=== PATIENT | male | born 1990 | race Caucasian/White ===

== ENCOUNTER → 2018-08-16 11:58 | Outpatient (CLI) | payer OTHER, SELFPAY ==
--- NOTE | 2018-08-16 12:05 | XR_ITS ---
XR KUB HISTORY: Renal stones ITS.REASON: kidney stone ORDERING PHYSICIAN: Rayo Lazar MD PATIENT AGE: 28 years COMPARISON: 07/19/2018 FINDINGS: There are multiple bilateral renal calculi.. There is a small cluster of calcifications noted over the L3 transverse process on the left and could represent small stones in the proximal left ureter. No other abnormality is are apparent. IMPRESSION: 1. Bilateral renal calculi. 2. Possible proximal fragmented left ureteral stone
== END ==
PROVIDERS: Visit Provider Urology
DX: N20.0 Calculus of kidney (principal)
CPT/HCPCS: 74018

== ENCOUNTER → 2018-09-06 12:40 | Outpatient (CLI) | payer OTHER, SELFPAY ==
--- NOTE | 2018-09-06 12:50 | XR_ITS ---
XR KUB HISTORY: ITS.REASON: kidney stones ORDERING PHYSICIAN: Rayo Lazar MD PATIENT AGE: 28 years COMPARISON: 08/16/2018 FINDINGS: The bowel gas pattern is unremarkable. No obvious obstruction.. Bilateral renal calculi are present. Multiple stones are present on the right measuring up to 6 mm in the lower pole. At least one stone noted in the left mid to lower pole at 4 mm. No obvious ureteral calculi. IMPRESSION: Bilateral nephrolithiasis
== END ==
PROVIDERS: Visit Provider Urology
DX: N20.1 Calculus of ureter (principal)
CPT/HCPCS: 74018

== ENCOUNTER 2020-04-11 12:51 | Emergency (ER) | payer OTHER, SELFPAY ==
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
[2020-04-11 13:07] VITALS: BMI 25.1
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
[2020-04-11 13:18] VITALS: BP 122/81; PULSE 89; RESP 17; TEMP 36.8; O2SAT 99; BMI 25.1
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
[2020-04-11 13:30] LABS: Basophils # 0.1 K/mm3 (0-0.2); Basophils % 0.8 % (0.1-2.0); Chloride 100 mmol/L (98-107); Eosinophils # 0.6 K/mm3 (0.0-0.4); Eosinophils % 7.5 % (0.1-12.0); Hematocrit 47.9 % (42.0-52.0); Hemoglobin 15.6 g/dL (14.1-18.0); Lymphocytes # 2.2 K/mm3 (0.7-4.5); Lymphocytes % 26.3 % (10-50); Mean Corpuscular HGB Conc 32.7 g/dL (31.8-35.4); Mean Corpuscular Hemoglobin 29.7 pg (27.0-31.2); Mean Corpuscular Volume 90.9 fl (80-94); Mean Platelet Volume 7.6 fl (7.4-10.4); Monocytes # 0.5 K/mm3 (0.1-1.0); Monocytes % 5.6 % (1.7-9.3); Neutrophils # 4.9 K/mm3 (1.8-7.8); Neutrophils % 59.7 % (37.0-80.0); Platelet Count 296 K/mm3 (142-424); Potassium 4.1 mmoL/L (3.5-5.1); Red Blood Count 5.26 M/mm3 (4.60-6.20); Red Cell Distribution Width 12.6 % (11.5-17.5); Sodium 139 mmol/L (136-145); White Blood Count 8.2 K/mm3 (4.8-10.8)
[2020-04-11 13:33] LABS: Anion Gap 12.1 mEq/L (5-15); Blood Urea Nitrogen 13 mg/dl (9-20); Calcium 9.4 mg/dl (8.4-10.2); Carbon Dioxide 31 mmol/L (22.0-30.0); Creatinine Clearance Estimated 121 mL/min (50-200); Estimated Glomerular Filt Rate 88 ml/min (>60); GFR (African American) 106 ML/MIN (>60); Glucose 113 mg/dl (74-100)
--- NOTE | 2020-04-11 14:15 | PC.NURSE ---
call placed to for possible transfer
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
--- NOTE | 2020-04-11 14:46 | PC.NURSE ---
lt arm cleaned and dsd applied. abd cleaned with warm soapy water.
[2020-04-11 15:02] VITALS: BP 123/74; PULSE 74; RESP 18; TEMP 36.6; O2SAT 98
== END 2020-04-11 15:06 | disposition home or self-care (01) ==
PROVIDERS: Emergency Provider Emergency Medicine
DX: S51.842A Puncture wound with foreign body of left forearm, initial encounter (principal); S41.142A Puncture wound with foreign body of left upper arm, initial encounter; S31.649A Puncture wound with foreign body of abdominal wall, unspecified quadrant with penetration into peritoneal cavity, initial encounter; W34.09XA Accidental discharge from other specified firearms, initial encounter; Y92.89 Other specified places as the place of occurrence of the external cause; Z23 Encounter for immunization; Z87.891 Personal history of nicotine dependence
CPT/HCPCS: 71045; 73060; 73090; 74177; 80048; 85025; 90471; 90715; 96374; 96375; 99282; J2405; Q9967

== ENCOUNTER 2022-08-18 17:48 | Emergency (ER) | payer OTHER, SELFPAY ==
[2022-08-18 17:50] VITALS: BP 91/57; PULSE 145; RESP 22; TEMP 36.6; O2SAT 95; BMI 24.4
[2022-08-18 17:57] VITALS: BMI 24.3
[2022-08-18 18:01] VITALS: BP 82/52; PULSE 133; RESP 20; O2SAT 96
[2022-08-18 18:28] LABS: Chloride 107 mmol/L (98-107)
[2022-08-18 18:29] LABS: Potassium 3.7 mmoL/L (3.5-5.1); Sodium 142 mmol/L (136-145)
[2022-08-18 18:30] VITALS: BP 133/85; PULSE 88; RESP 20
[2022-08-18 18:32] LABS: Anion Gap 11.7 mEq/L (5-15); Basophils # 0.2 K/mm3 (0-0.2); Basophils % 1.8 % (0.1-2.0); Blood Urea Nitrogen 19 mg/dl (9-20); Calcium 9.2 mg/dl (8.4-10.2); Carbon Dioxide 27 mmol/L (22.0-30.0); Creatinine Clearance Estimated 79 mL/min (50-200); Eosinophils # 0.3 K/mm3 (0.0-0.4); Eosinophils % 3.7 % (0.1-12.0); Estimated Glomerular Filt Rate 58 ml/min (>60); GFR (African American) 71 ML/MIN (>60); Glucose 133 mg/dl (74-100); Hematocrit 49.6 % (42.0-52.0); Hemoglobin 17.3 g/dL (14.1-18.0); Lymphocytes # 4.1 K/mm3 (0.7-4.5); Lymphocytes % 49.4 % (10-50); Mean Corpuscular HGB Conc 34.8 g/dL (31.8-35.4); Mean Corpuscular Hemoglobin 30.7 pg (27.0-31.2); Mean Corpuscular Volume 88.5 fl (80-94); Mean Platelet Volume 8.7 fl (7.4-10.4); Monocytes # 0.4 K/mm3 (0.1-1.0); Monocytes % 4.7 % (1.7-9.3); Neutrophils # 3.4 K/mm3 (1.8-7.8); Neutrophils % 40.4 % (37.0-80.0); Platelet Count 352 K/mm3 (142-424); Red Blood Count 5.61 M/mm3 (4.60-6.20); Red Cell Distribution Width 12.7 % (11.5-17.5); White Blood Count 8.3 K/mm3 (4.8-10.8)
[2022-08-18 19:00] VITALS: BP 116/79
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
[2022-08-18 19:30] VITALS: BP 112/78
[2022-08-18 20:02] VITALS: BP 117/79; PULSE 94; RESP 17; TEMP 36.8; O2SAT 98
== END 2022-08-18 20:03 | disposition home or self-care (01) ==
PROVIDERS: Emergency Provider Emergency Medicine
DX: L50.0 Allergic urticaria (principal); F17.210 Nicotine dependence, cigarettes, uncomplicated
CPT/HCPCS: 80048; 85025; 96361; 96374; 96375; 99284

== ENCOUNTER 2022-09-08 17:00 | Emergency (ER) | payer OTHER, SELFPAY ==
[2022-09-08 18:00] VITALS: BP 147/96; PULSE 65; RESP 18; TEMP 36.4; O2SAT 98; BMI 33.2
--- NOTE | 2022-09-08 18:11 | EXP.UTC ---
Discharge Plan Disposition Patient Disposition: Home, Self-Care Condition: Good Prescriptions Prescriptions: New amoxicillin-pot clavulanate 875-125 mg Tablet 1 tab PO Q12H Qty: 20 0RF methocarbamol 500 mg tablet 500 mg PO BID PRN (Reason: muscle spasticity) Qty: 15 0RF Rx Instructions: Take as needed for TMJ muscle pain ibuprofen 600 mg tablet 600 mg PO Q6HP PRN (Reason: Moderate Pain) Qty: 20 0RF No Action epinephrine [EpiPen] 0.3 mg/0.3 mL auto-injector 0.3 mg IM Q10M PRN (Reason: anaphylaxis) Qty: 2 0RF Rx Instructions: for 2 doses Referrals Follow up/Referrals: Provider,Referral, MD [Primary Care Provider] - See instructions Activity Restrictions/Add. Instructions Additional Instructions/Restrictions: Follow up with Dentist Call and make appointment Follow up with Family Doctor or ENT if needed Return if needed You was given Toradol injection in [facility] do not take any Ibuprofen for the next 8-10 hrs Do not take Methocarbinol while working you should not operate heavy machinery, drive, care for small children etc while taking this medication you may take one just before bedtime *Muscle relaxer every 12 hours as needed for muscle spasms/TMJ pain but remember, it WILL cause drowsiness You cannot take it and drive, operate machinery or care for small children. Clinical Impressions Clinical Impression: Dental infection, TMJ (temporomandibular joint syndrome) Stand Alone Forms Stand Alone Forms: Work/School Release Instructions Patient Instructions: TMJ Syndrome (Alternative Therapy), Tooth Abscess, DI for Tooth Abscess, DI for Temporomandibular Disorder Discharge ED Provider: Jhoana Rod [facility] HPI General Stated complaint: dental pain R side face pain Time Seen by Provider: 09/08/22 18:11 History of Present Illness Provider Complaint: Patient states that he has several broken and decaying teeth on top of right gumline States that he thinks he may have a dental infection States that he has been having pain in his right upper back tooth that is broken at the gumline and goes into his face and jaw area States that today it felt like it was starting to swell States that also has pain his jaw area and hurts when he moves or opens mouth certain ways and hurts up into his adventism and hurts when he chews denies injury States that he has been unable to get into dentist Related Data Previous Rx's Medication Instructions Recorded epinephrine 0.3 mg/0.3 mL 0.3 mg (0.3 mL) IM Q10M PRN 08/18/22 injection, auto-injector (EpiPen) anaphylaxis #2 ea amoxicillin 875 mg-potassium 1 tab PO Q12H #20 tabs 09/08/22 clavulanate 125 mg tablet ibuprofen 600 mg tablet 600 mg PO Q6HP PRN Moderate Pain 09/08/22 #20 tabs methocarbamol 500 mg tablet 500 mg PO BID PRN muscle 09/08/22 spasticity #15 tabs Allergies Allergy/AdvReac Type Severity Reaction Status Date / Time No Known Allergies Allergy Verified 09/08/22 18:15 [facility] Disclaimer: The information contained in this section may have been updated after the patient was seen, as this information can be updated by other users. Social History Smoking Status: Current every day smoker alcohol intake: never substance use type: denies use current occupational status: employed Travel in the last 8 weeks: None ROS Obtained: Yes All systems reviewed & no additional complaints except as documented and Yes Systems reviewed as appropriate & no additional complaints except as documented Constitutional Constitutional: Reports system reviewed and no additional complaints, except as documented, Reports as per HPI and Denies fever(s) ENT Ears, Nose, Mouth, and Throat: Reports system reviewed and no additional complaints, except as documented, Reports as per HPI, Reports dental pain and Reports facial pain (pain in jaw up to temporal area and down in front of ear) Physical Exam General General appearance: alert and in no apparent
[2022-09-08 18:38] VITALS: BP 147/96; PULSE 65; RESP 18; TEMP 36.4; O2SAT 98
== END 2022-09-08 18:45 | disposition home or self-care (01) ==
PROVIDERS: Emergency Provider Nurse Practitioner
DX: M26.601 Right temporomandibular joint disorder, unspecified (principal); K04.7 Periapical abscess without sinus
CPT/HCPCS: 96372; 99212; 99214; G0463

== ENCOUNTER 2022-12-14 18:55 | Emergency (ER) | payer SELFPAY ==
[2022-12-14 18:56] VITALS: BP 129/83; PULSE 77; RESP 17; TEMP 36.6; O2SAT 99; BMI 23.6
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
[2022-12-14 20:06] VITALS: BP 124/62; PULSE 88; RESP 18; TEMP 36.6; O2SAT 97
[2022-12-14 20:10] VITALS: BP 124/62; PULSE 77; RESP 18; TEMP 37.1; O2SAT 98
== END 2022-12-14 20:08 | disposition home or self-care (01) ==
PROVIDERS: Emergency Provider Emergency Medicine
DX: M25.532 Pain in left wrist (principal); F17.210 Nicotine dependence, cigarettes, uncomplicated; V28.49XA Other motorcycle driver injured in noncollision transport accident in traffic accident, initial encounter
CPT/HCPCS: 73090; 73110; 73130; 99283; 99284

== ENCOUNTER 2023-02-02 17:29 | Emergency (ER) | payer SELFPAY ==
[2023-02-02 17:30] VITALS: BP 141/87; PULSE 82; RESP 18; TEMP 36.8; O2SAT 98; BMI 24.3
--- NOTE | 2023-02-02 17:47 | EXP.UTC ---
Discharge Plan Disposition Patient Disposition: Home, Self-Care Condition: Good Prescriptions Prescriptions: No Action No Known Home Medications Referrals Follow up/Referrals: Provider,Referral, [Primary Care Provider] - See instructions Clinical Impressions Clinical Impression: Possible exposure to STD Instructions Patient Instructions: Facts About Sexually Transmitted Infections Discharge ED Provider: Anthony Peter [facility] [place] General Stated complaint: needs STD test Time Seen by Provider: 02/02/23 17:47 History of Present Illness Provider Complaint: He is here to be checked for chlamydia and gonorrhea. He states that he may have been exposed to one these. He denies any symptoms. Related Data Home Medications Medication Instructions Recorded Confirmed No Known Home Medications 12/14/22 12/14/22 Allergies Allergy/AdvReac Type Severity Reaction Status Date / Time morphine Allergy Verified 02/02/23 17:[address] [facility] Disclaimer: The information contained in this section may have been updated after the patient was seen, as this information can be updated by other users. Medical History No significant past medical history Surgical History No history of previous surgery Family History Other No significant family history Social History Smoking Status: Current every day smoker alcohol intake: never substance use type: denies use current occupational status: employed Travel in the last 8 weeks: None ROS Obtained: Yes All systems reviewed & no additional complaints except as documented Constitutional Constitutional: Denies chills and Denies fever(s) Eyes Eyes: Denies eye discharge ENT Ears, Nose, Mouth, and Throat: Denies dizziness, Denies otalgia and Denies sore throat Cardiovascular Cardiovascular: Denies chest pain Respiratory Respiratory: Denies shortness of breath, Denies chest congestion, Denies cough, Denies stridor and Denies wheezing Gastrointestinal Gastrointestingal: Denies nausea or vomiting Genitourinary Male Genitourinary: Reports as per HPI and Denies difficulty urinating Musculoskeletal Musculoskeletal: Reports system reviewed and no additional complaints, except as documented and Denies arthralgias Integumentary/Breasts Skin/Breast: Denies rash Neurologic Neurologic: Denies dizziness and Denies paresthesias Allergic/Immunologic Allergic/Immunologic: Denies wheezing Physical Exam General General appearance: alert and in no apparent distress Head Head exam: atraumatic, normocephalic and normal inspection Eye Eye exam: Present normal appearance, PERRL and EOMI ENT ENT exam: Present normal exam, normal oropharynx, mucous membranes moist, TM's normal bilaterally and normal external ear exam Neck Neck exam: Present normal inspection, full ROM and trachea midline; Absent meningismus or lymphadenopathy Chest Chest inspection: Present normal inspection and symmetric chest wall rise; Absent tenderness Respiratory Respiratory exam: Present normal lung sounds bilaterally; Absent respiratory distress Cardiovascular Cardiovascular exam: Present regular rate and normal rhythm; Absent JVD Abdominal Exam Abdominal exam: Present soft and normal bowel sounds; Absent distention, tenderness or guarding Extremities Exam Extremities exam: Present normal inspection, full ROM and normal capillary refill; Absent calf tenderness Back Exam Back exam: Present normal inspection; Absent tenderness Neurological Exam Neurological exam: Present alert and oriented X3 Psychiatric Psychiatric exam: Present normal affect and normal mood Skin Skin exam: Present warm, dry, intact and normal color Lymphatic Lymphatic Findings: no adenopathy Medical Decision Making Medical Rec
[2023-02-02 18:21] VITALS: BP 141/87; PULSE 82; RESP 18; TEMP 36.8; O2SAT 98
[2023-02-05 07:23] LABS: Neisseria gonorrhoeae, NAA Negative (Negative)
== END 2023-02-02 18:22 | disposition home or self-care (01) ==
PROVIDERS: Emergency Provider Nurse Practitioner Family
DX: Z20.2 Contact with and (suspected) exposure to infections with a predominantly sexual mode of transmission (principal); F17.210 Nicotine dependence, cigarettes, uncomplicated
CPT/HCPCS: 87086; 87491; 87591; 99212; 99213; G0463